=== PATIENT | male | born 1955 | race Native Hawaiian/Other Pacific Islander ===

== ENCOUNTER 2016-12-01 13:25 | Outpatient (CLI) | payer BC ==
[~2016-12-01 13:25] MED LIST: DIGOX250 MCG PO; DIOVAN HCT320 MG/25 PO; NEXIUM40 M1 PO
== END 2016-12-01 20:08 | disposition home or self-care (01) ==
LOC: RAD 13:25
DX: M25.562 Pain in left knee (principal)

== ENCOUNTER 2016-12-15 13:43 | Outpatient (CLI) | payer BC | END 2016-12-15 23:05 | disposition home or self-care (01) | LOC: MRI 13:43 | DX: S83.212A Bucket-handle tear of medial meniscus, current injury, left knee, initial encounter (principal) ==

== ENCOUNTER 2017-04-15 10:17 | Outpatient (CLI) | payer BC | END 2017-04-15 19:05 | disposition home or self-care (01) | LOC: RAD 10:17 | DX: M81.0 Age-related osteoporosis without current pathological fracture (principal) ==

== ENCOUNTER 2017-10-06 12:35 | Outpatient (CLI) | payer BC | END 2017-10-06 13:40 | disposition home or self-care (01) | LOC: RAD 12:35 | DX: Z01.818 Encounter for other preprocedural examination (principal) ==

== ENCOUNTER 2021-05-30 08:27 | Outpatient (CLI) | payer OTHER | END 2021-05-30 22:02 | disposition home or self-care (01) | LOC: NM 08:27 | PROVIDERS: ATTEND Specialist | DX: R07.89 Other chest pain (principal) | CPT/HCPCS: A9500 ==

== ENCOUNTER 2021-06-20 08:34 | Outpatient (CLI) | payer BC ==
[~2021-06-20] VITALS: Ht 185.4 cm; Wt 104.3 kg
== END 2021-06-20 19:35 | disposition home or self-care (01) ==
LOC: INF 08:34
PROVIDERS: ATTEND Family Medicine
DX: Z23 Encounter for immunization (principal); U07.1 COVID-19
CPT/HCPCS: 96365; M0244

== ENCOUNTER 2022-07-04 09:45 | Outpatient (CLI) | payer BC | END 2022-07-04 21:49 | disposition home or self-care (01) | LOC: RAD 09:45 | PROVIDERS: ATTEND Nurse Practitioner Family | DX: U07.1 COVID-19 (principal) ==

== ENCOUNTER 2023-07-07 17:01 | Outpatient (CLI) | payer BC | END 2023-07-07 22:10 | disposition home or self-care (01) | LOC: RAD 17:01 | PROVIDERS: ATTEND Family Medicine | DX: S76.012A Strain of muscle, fascia and tendon of left hip, initial encounter (principal); Y92.89 Other specified places as the place of occurrence of the external cause ==

== ENCOUNTER 2023-07-22 12:14 | Outpatient (CLI) | payer BC | END 2023-07-22 19:52 | disposition home or self-care (01) | LOC: MRI 12:14 | PROVIDERS: ATTEND Family Medicine | DX: S76.012A Strain of muscle, fascia and tendon of left hip, initial encounter (principal); Y92.89 Other specified places as the place of occurrence of the external cause | CPT/HCPCS: 36415; 82565; 84520; A9576 ==